=== PATIENT | female | born 1995 | race Caucasian/White ===

== ENCOUNTER → 2021-09-04 13:52 | Outpatient (BNVA) | payer OTHER, SELFPAY | PROVIDERS: Visit Provider Nurse Practitioner Family | DX: Z20.822 Contact with and (suspected) exposure to COVID-19 (principal) | CPT/HCPCS: 87635 ==

== ENCOUNTER 2022-07-26 10:40 | Outpatient (CLI) | payer SELFPAY ==
[2022-07-26] VITALS (7 sets, daily range): BP systolic 93–109; BP diastolic 51–68; PULSE 70–81; RESP 18; TEMP 35.1; BMI 30.7
== END 2022-07-26 12:04 | disposition home or self-care (01) ==
LOC: OPOB 10:41 → OBGYN 10:41
PROVIDERS: Visit Provider Family Medicine
DX: O24.419 Gestational diabetes mellitus in pregnancy, unspecified control (principal); Z3A.00 Weeks of gestation of pregnancy not specified
CPT/HCPCS: 59025